=== PATIENT | male | born 1995 | race Caucasian/White ===

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

== ENCOUNTER 2018-02-07 19:45 | Emergency (ER) ==
[2018-02-07 19:48] VITALS: TEMP 98.5; BMI 22.6
[2018-02-07 20:32] VITALS: BP 148/81
[2018-02-07] MEDS ORDERED: LACTATED RINGERS 1,000 ML IV STA (20:55)
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
--- NOTE | 2018-02-08 07:53 | DI ---
EXAM: Chest one view, frontal view only. HISTORY: Chest pain. COMPARISON: None available. FINDINGS: The heart size is normal. There is no pulmonary vascular congestion. The lungs are clear . No pleural effusion or pneumothorax is seen. No acute osseous abnormality is identified. IMPRESSION: No acute cardiopulmonary process.
== END 2018-02-07 22:20 | disposition home or self-care (01) ==
LOC: ED 19:45
DX: R07.9 Chest pain, unspecified (principal); E86.0 Dehydration; E87.6 Hypokalemia; R10.13 Epigastric pain; F17.210 Nicotine dependence, cigarettes, uncomplicated
CPT/HCPCS: 36415; 80053; 82550; 82553; 84484; 85025; 85379; 93005; 93010; 96360; 96361; 99283

== ENCOUNTER 2018-07-23 13:50 | Outpatient (CLI) ==
--- NOTE | 2018-07-23 14:12 | DI ---
EXAM: Two views of the chest. History: Chest wall pain. Comparison: Chest radiograph 02/07/2018 Findings: Heart size is normal. No focal consolidation. No appreciable pleural fluid and no pneumo thorax. No acute osseous abnormalities. Impression: No acute cardiopulmonary process
== END 2018-07-23 13:51 | disposition home or self-care (01) ==
LOC: LAB 13:50
PROVIDERS: ATTEND Family Medicine
DX: Z00.00 Encounter for general adult medical examination without abnormal findings (principal); J02.9 Acute pharyngitis, unspecified; R59.0 Localized enlarged lymph nodes; R07.89 Other chest pain
CPT/HCPCS: 36415; 80053; 80061; 80306; 81001; 84439; 84443; 85025; 86308; 87651